=== PATIENT | female | born 1965 ===

== ENCOUNTER 2018-05-12 21:27 | Emergency (ER) | payer BC, OTHER ==
[2018-05-12 21:44] VITALS: BMI 30.9
[2018-05-12 22:06] VITALS: RESP 16; TEMP 97.9
[2018-05-12 23:43] LABS: BASO # 0.03 K/mm3 (0.0-2.0); BASO % 0.4 % (0.0-3.0); EOS # 0.2 (0.0-0.7); EOS % 2.8 % (1.5-5.0); HEMOGLOBIN 13.5 g/dL (12.0-16.0); LYMPH # 3.3 (1.2-3.4); LYMPH % 41.9 % (22.0-35.0); MEAN CELL VOLUME 78.5 fl (80.0-105.0); MEAN CORPUSCULAR HEMOGLOBIN 25.2 pg (25.0-35.0); MEAN CORPUSCULAR HGB CONC 32.1 g/dl (31.0-37.0); MEAN PLATELET VOLUME 11.2 fl (7.0-11.0); MONO # 0.4 (0.1-0.6); MONO % 5.5 % (1.0-6.0); RBC 5.36 10^6/uL (3.5-6.1); RED CELL DISTRIBUTION WIDTH 15.4 % (11.5-14.5); WHITE BLOOD COUNT 7.9 10^3/uL (4.5-11.0)
--- NOTE | 2018-05-12 23:57 | ED PDOC ---
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 Reports feeling better now that she is in the ER. She reports no chest pain or SOB now, denies syncope, n/v, diaphoresis, fever, palpitations, SI/HI. She does report increase stress, however she does feel safe at home. Of note, when patient initially arrived her bp was elevated bp, she has had elevated bp in the past, she was following up with her pmd, but never took anti-hypertensive medication. Past Medical History - Psychiatric Hx Psychophysiologic Disorder: No Hx Substance Use: No - Anesthesia Hx Anesthesia: Yes Hx Anesthesia Reactions: No Hx Malignant Hyperthermia: No Family/Social History Family/Social History: No Known Family HX Smoking Status: Never Smoked Hx Alcohol Use: No Hx Substance Use: No Allergies/Home Meds Allergies/Adverse Reactions: Allergies No Known Allergies Allergy (Verified 05/12/18 21:44) Home Medications: Home Meds Medication Instructions Recorded Confirmed No Known Home Med 05/12/18 05/12/18 Review of Systems - Review of Systems Constitutional: absent: Fatigue, Fevers Respiratory: SOB. absent: Cough Cardiovascular: Chest Pain. absent: Palpitations Gastrointestinal: absent: Abdominal Pain, Diarrhea, Nausea, Vomiting Musculoskeletal: absent: Arthralgias, Back Pain, Neck Pain Skin: absent: Rash, Skin Lesions Neurological: Dizziness. absent: Headache Physical Exam Vital Signs Temp Pulse Resp BP Pulse Ox 05/12/18 23:11 73 16 137/71 96 05/12/18 22:07 163/98 H 05/12/18 21:45 97.9 F 86 16 180/99 H 96 Temperature: Afebrile Blood Pressure: Hypertensive Pulse: Regular Respiratory Rate: Normal Appearance: Positive for: Well-Appearing, Non-Toxic, Comfortable Pain Distress: None Mental Status: Positive for: Alert and Oriented X 3 - Systems Exam Head: Present: Atraumatic, Normocephalic Pupils: Present: PERRL Extroacular Muscles: Present: EOMI Conjunctiva: Present: Normal Mouth: Present: Moist Mucous Membranes Neck: Present: Normal Range of Motion Respiratory/Chest: Present: Clear to Auscultation, Good Air Exchange, Tender to Palpation (+mild TTP to the lower sternum). No: Respiratory Distress, Accessory Muscle Use Cardiovascular: Present: Regular Rate and Rhythm, Normal S1, S2. No: Murmurs Abdomen: No: Tenderness, Distention, Peritoneal Signs Back: Present: Normal Inspection Upper Extremity: Present: Normal Inspection. No: Cyanosis, Edema Lower Extremity: Present: Normal Inspection. No: Edema Neurological: Present: GCS=15, CN II-XII Intact, Speech Normal Skin: Present: Warm, Dry, Normal Color. No: Rashes Psychiatric: Present: Alert, Oriented x 3, Normal Insight, Normal Concentration Medical Decision Making ED Course and Treatment: 05/13/18 00:22 Plan : - IV - Labs - EKG EKG : NSR at 83 bpm, normal axis, no acute ST changes. Labs reviewed and wnl. BP 132/69 P75 R16 O2sat 99%RA. On re-evaluation, patient reports improvement of symptoms, denies any SOB, chest pain, palpitations. States that she feels well and wants to go home. Diagnostic results d/w the patient. Advised to follow up with primary care physician in 1-2 days without fail. Return to the emergency room at any time for any new or worsening symptoms. Patient states she fully agrees with and understands discharge instructions. States that she agrees with the plan and disposition. Verbalized and repeated discharge instructions and plan. I have given the patient opportunity to ask any additional questions - PA / MERCHANDISE WORKER / Resident Statement MD/DO has reviewed & agrees with the documentation as recorded. Disposition/Present on Arrival - Present on Arrival Any Indicators Present on Arrival: No History of DVT/PE: No History of Uncontrolled Diabetes: No Urinary Catheter: No History of Decub. Ulcer: No History Surgical Site Infection Following: None - Disposition Have Diagnosis and Disposition been Completed?: Yes Diagnosis: Anxiety Disposition: HOME/ ROUTINE Disposition Time: 00:15 Patient Plan: Discharge Condition: STABLE Discharge Instructions (ExitCare): Anxiety, Adult (DC) Additional Instructions: Thank you for letting us take care of you today. You were treated for anxiety. The emergency medical care you received today was directed at your acute symptoms. It may take several days for your symptoms to resolve. Return to the Emergency Department if your symptoms worsen, do not improve, or if you have any other problems. Please contact your doctor in 2 days for re-evaluation and follow up / or call one of the physicians/clinics you have been referred to that are listed on the Patient Visit Information form that is included in your discharge packet. Bring any paperwork you were given at discharge with you along with any medications you are taking to your follow up visit. Our treatment cannot replace ongoing medical care by a primary care provider (PCP) outside of the emergency department. Thank you for allowing the [facility] team to be part of your care today. If you had an X-Ray or CT scan: A Radiologist will review the ED reading if any change in treatment is needed we will contact you. Referrals: FAMILY PROVIDER,NO [Primary Care Provider] - Follow up with primary [facility] [place] [Outside] - Follow up with primary Forms: [employer] ([place]), WORK NOTE
[2018-05-13 00:01] LABS: ALB/GLOB RATIO 1.1 (1.1-1.8); ALBUMIN 4.2 g/dL (3.0-4.8); ALT/SGPT 11 U/L (7-56); AST/SGOT 27 U/L (14-36); BLOOD UREA NITROGEN 23 mg/dL (7-21); CALCIUM 9.3 mg/dL (8.4-10.5); GFR NON-AFRICAN AMERICAN > 60
[2018-05-13 00:12] LABS: TROPONIN I < 0.01 ng/mL
[2018-05-13 00:46] VITALS: BP 132/69; PULSE 75; O2SAT 99
--- NOTE | 2018-05-13 10:23 | CARD ---
APPROVED REPORT Date of service: 05/12/2018 EKG Measurement Heart [id number] <Conclusion> Normal sinus rhythm Possible Left atrial enlargement Borderline ECG
== END 2018-05-13 00:46 | disposition home or self-care (01) ==
LOC: ED 21:27
DX: F41.9 Anxiety disorder, unspecified (principal)